=== PATIENT | male | born 1980 | race Caucasian/White ===

== ENCOUNTER 2022-05-29 11:05 | Emergency (ER) | payer OTHER, SELFPAY ==
[2022-05-29] VITALS (9 sets, daily range): BP systolic 120–157; BP diastolic 85–99; PULSE 57–68; RESP 13–22; TEMP 36.6; O2SAT 99–100
--- NOTE | ~2022-05-29 | XR_ITS ---
EXAMINATION: XR chest 1V portable INDICATION: Dizziness TECHNIQUE: Portable AP chest at 1215 hours COMPARISON: None available FINDINGS: There is a mild diffuse interstitial pattern. No pleural effusion or pneumothorax. The card iomediastinal silhouette is normal. Surgical clips are noted near the gastroesophageal junction. IMPRESSION: 1. Mild diffuse interstitial pattern, consistent with pulmonary edema and/or pneumonia and/or atelect asis. Reviewed, dictated and finalized at location B. [employer] IMPRESSION: 1. Mild diffuse interstitial pattern, consistent with pulmonary edema and/or pn eumonia and/or atelectasis.
--- NOTE | ~2022-05-29 | CT_ITS ---
EXAMINATION: CT brain wo con DATE: 05/29/2022 12:20 INDICATION: Headache, dizziness and loss of balance TECHNIQUE: Computed tomography (CT) of the head was performed without intravenous contrast. Sagittal and coronal reconstructions were performed. The mA was adjusted according to patient size. Iterative reconstruction technique was employed. The dose-length product was 605.33 mGy-cm. COMPARISON: None FINDINGS: No acute intracranial hemorrhage, acute infarction or abnormal extra axial fluid collection. Ventricl es are normal and symmetric. No mass/mass effect. Prominent mucosal thickening the paranasal sinuses along with dependently layering fluid in the bilateral sphenoid sinuses and nearly filling the left m axillary and bilateral frontal and ethmoid sinuses consistent with acute sinusitis. The orbits are no rmal. Mastoid air cells and middle ear cavities are clear. IMPRESSION: 1. Normal brain. No acute intracranial process. 2. Extensive likely acute sinusitis. Reviewed, dictated and finalized at location A. [employer]
--- NOTE | 2022-05-29 11:14 | ECG_ITS ---
Measurements Intervals [place] Rate: 61 P: 58 [place]: 176 QRS: 27 QRSD: 102 T: 35 QT: 383 QTc: 387 Interpretive Statements SINUS RHYTHM DELAYED PRECORDIAL R/S TRANSITION BORDERLINE ECG NO PREVIOUS ECG AVAILABLE FOR COMPARISON Electronically Signed On 05-29-2022 11:48:26 MACHINIST by Stephen Gomez D.O.
[2022-05-29 11:33] LABS: Basophils Percent Auto 0.4 % (0.2-1.2); Eosinophils Absolute Auto 0.2 K/mm3 (0-0.3); Eosinophils Percent Auto 3.4 % (0-4.4); Hematocrit 41.8 % (42.0-52.0); Hemoglobin 13.6 g/dL (14.0-18.0); Immature Granulocyte Absolute 0.01 K/mm3 (0.00-0.031); Immature Granulocyte Percent A 0.2 % (0-0.5); Lymphocytes Absolute Auto 0.93 K/mm3 (0.9-3.2); Lymphocytes Percent Auto 20.9 % (18.3-44.2); Mean Corpuscular HGB Conc 32.5 g/dl (32-36); Mean Corpuscular Hemoglobin 29.1 pg (26-34); Mean Corpuscular Volume 89.5 fl (80-100); Mean Platelet Volume 10.1 fl (7.4-10.4); Monocytes Absolute Auto 0.3 K/mm3 (0.1-0.6); Monocytes Percent Auto 7.4 % (2.6-8.5); Neutrophils Percent Auto 67.7 % (45.5-73.1); Platelet Count Result 160 k/mm3 (150-375); Red Blood Count 4.67 M/mm3 (4.6-6.20); Red Cell Distribution Width 12.6 % (11.5-14.5); White Blood Count 4.5 K/mm3 (4.5-10.0)
[2022-05-29 11:43] LABS: Alanine Aminotransferase 16 U/L (6-50); Albumin Level 4.4 g/dL (3.5-5.1); Alkaline Phosphatase 97 U/L (38-126); Anion Gap 2 mmol/L (8-16); Aspartate Amino Transferase 22 U/L (17-59); Bilirubin,Total 0.3 mg/dL (0.2-1.3); Blood Urea Nitrogen 15 mg/dL (9-20); Calcium 8.6 mg/dL (8.4-10.2); Carbon Dioxide 32 mmol/L (22-30); Chloride 102 mmol/L (98-107); Estimated CRCL calculation 177 ml/min; Estimated Glomerular Filt Rate > 60; Glucose 94 mg/dL (65-110); Potassium 4.4 mmol/L (3.4-5.0); Sodium 136 mmol/L (137-145)
--- NOTE | 2022-05-29 12:10 | ED.DIZZY ---
HPI - Dizziness General Chief Complaint: Dizziness Stated Complaint: posterior head pressure, dizzy, nosebleed Time Seen by Provider: 05/29/22 12:00 Source: RN notes reviewed History of Present Illness HPI Narrative: Patient presents emerged department from home for dizziness. Patient states that this morning he woke with pressure in the posterior aspect of his head states that the headache gradually worsened throughout the day and he had gone to work states this morning at work prior to arrival he then began to have an episode where he felt lightheaded and dizzy states he felt he might pass out he states he did experience a nosebleed during this that is since resolved on its own he states that since coming to the emergency department his headache is also resolved and he has no dizziness at this time he denied feeling any chest pain or shortness of breath he denies any vision changes numbness or tingling in the extremities unilateral deficits abdominal pain nausea or vomiting or any other symptoms. This time patient is resting in bed and has no complaints Related Data Allergies Allergy/AdvReac Type Severity Reaction Status Date / Time No Known Allergies Allergy Verified 05/29/22 11:20 Review of Systems Review of Systems: Gen.: Denies fevers or chills Eyes: Denies eye pain or visual change ENT: Reports epistaxis Respiratory: Denies shortness of breath or cough CV: Denies chest pain or palpitations GI: Denies abdominal pain nausea, emesis or diarrhea Musculoskeletal: Denies back pain or muscle pain Neuro: See HPI Skin: Denies rash Except as documented, all other systems reviewed and negative PMFSH Past Medical History Medical History (Updated 05/29/22 @ 15:21 by Paramjit Durant DO) Patient denies significant medical history Social History Social History (Updated 05/29/22 @ 12:12 by Paramjit Durant DO) Smoking status: Never smoker Exam Narrative: APPEARANCE: No acute distress, nontoxic, resting in bed HEENT: Normocephalic, atraumatic, OMM, TMs clear bilaterally EYES: PERRL, EOMI NECK: Supple, nontender, full range of motion without pain, no meningismus RESPIRATORY: No respiratory distress, clear to auscultation bilaterally with no rhonchi wheezing or rales CARDIOVASCULAR: RRR s murmur ABDOMINAL: Soft, nontender, nondistended MUSCULOSKELETAL: Moves all extremities. No clubbing, cyanosis or edema. NEURO: A and O ?3, following commands, speech normal, cranial nerves II through XII grossly intact,muscle strength 5 out of 5 bilateral upper and lower extremities SKIN:: Warm, dry. Normal Color PSYCHIATRIC: Normal affect/mood Course Course Emergency Course: Reviewed the patient's chest x-ray the patient has no fever he has no cough he has no shortness of breath he is white count is within normal limits with no shift and I doubt pneumonia I checked a BNP and BNP is 28 and doubt any evidence of pulmonary edema D-dimer was also checked which was in normal limits showing no signs of pulmonary embolism and suspect atelectasis. I did discuss with patient his chest x-ray and that it possibly shows interstitial pattern and that he may need to follow-up with his PCP as an outpatient for further evaluation Patient's is now present and further discussion with the patient notes the patient does have intermittent episodes where he gets dizzy over the past several months he states that these episodes can be very brief lasting several minutes in time he is have never had a formal work-up for these I discussed with him and the possibility of arrhythmia and will follow-up with cardiology as an outpatient for possible Holter monitor patient does state he has been having some nasal congestion we will treat for sinusitis based on findings on CT and headache that is now resolved feel this is likely secondary to sinusitis Discussed with patient results of workup and diagnosis. Discussed need for follow-up with primary care, proper us
[2022-05-29] MEDS: SODIUM CHLORIDE 0.9% IV 1,000 ML 999 ML IV CONT (12:11)
[2022-05-29 12:45] LABS: Troponin I < 0.012 ng/mL (0.000-0.034)
[2022-05-29 13:09] LABS: NT Pro B Type Natriuretic Pept 20 pg/mL (19.9-100)
[2022-05-29 13:35] LABS: Influenza A QL RT-PCR Negative (Negative); Influenza B QL RT-PCR Negative (Negative); SARS-CoV-2 RNA PCR Negative
[2022-05-29 14:11] LABS: D Dimer 0.45 ug/mL (<0.48)
[2022-05-29 15:11] LABS: Troponin I < 0.012 ng/mL (0.000-0.034)
[2022-05-29] MEDS: AMOXICILLIN/CLAVULANATE K 875-125 MG TAB 1 TABLET PO (15:24)
== END 2022-05-29 15:36 | disposition home or self-care (01) ==
PROVIDERS: Emergency Medicine; Emergency Provider Emergency Medicine; PCP Family Medicine
DX: J32.9 Chronic sinusitis, unspecified (principal); R42 Dizziness and giddiness; R51.9 Headache, unspecified; Z20.822 Contact with and (suspected) exposure to COVID-19; R94.31 Abnormal electrocardiogram [ECG] [EKG]; R91.8 Other nonspecific abnormal finding of lung field
CPT/HCPCS: 36415; 70450; 71045; 80053; 83880; 84484; 85025; 85380; 87636; 93005; 96360; 99284; A9270; J7030